=== PATIENT | female | born 1960 | race Caucasian/White ===

== ENCOUNTER 2017-05-01 09:19 | Day surgery (SDC) | payer MEDICAID ==
[2017-05-01] VITALS (14 sets, daily range): BP systolic 99–131; BP diastolic 67–90
[~2017-05-01] VITALS: Ht 157.5 cm; Wt 88.7 kg
[2017-05-01] MEDS ORDERED: normal saline 1000ml 1,000 ML IV PRN (09:45)
[2017-05-01] MEDS ORDERED: MULT-933 PO (10:30)
[2017-05-01] MEDS ORDERED: PER10325T PO (10:31)
[2017-05-01] MEDS ORDERED: LACT1CAP65 PO (10:32)
[2017-05-01] MEDS ORDERED: ACET-812 PO (10:33)
[2017-05-01] MEDS ORDERED: LIDOcaine 1%/PF (10mg/ml) 5ml vial ONE (11:11)
[2017-05-01] MEDS ORDERED: normal saline 1000ml 1,000 ML IV SCH (11:20)
[2017-05-01] MEDS ORDERED: midazolam 2 mg/2 ml injection ONE (11:41)
[2017-05-01] MEDS ORDERED: heparin sodium, porcine/PF 100unit/ml 5ML syringe ONE (11:41)
[2017-05-01] MEDS ORDERED: fentaNYL/PF 50MCG/1 ML 2ML syringe ONE (11:41)
== END 2017-05-01 13:45 | disposition home or self-care (01) ==
LOC: SSTAY O 09:19
PROVIDERS: ATTEND Radiology Diagnostic Radiology
DX: C53.9 Malignant neoplasm of cervix uteri, unspecified (principal); F41.8 Other specified anxiety disorders; F32.89 Other specified depressive episodes; G43.909 Migraine, unspecified, not intractable, without status migrainosus; Z87.891 Personal history of nicotine dependence; Z79.899 Other long term (current) drug therapy
CPT/HCPCS: 36561; 76937; 77001; A6219; C1788; C1894; J1642; J2001; J2250; J3010; J7030; 99152; 99153; A4620